=== PATIENT | female | born 1970 ===

== ENCOUNTER 2018-04-10 17:43 | Emergency (ER) | payer OTHER ==
[2018-04-10 18:36] VITALS: RESP 18
--- NOTE | 2018-04-10 19:16 | ED PDOC ---
HPI: Abdomen Time Seen by Provider: 04/10/18 18:40 Chief Complaint (Nursing): Abdominal Pain Chief Complaint (Provider): Abdominal Pain History Per: Patient History/Exam Limitations: no limitations Onset/Duration Of Symptoms: Days (x1 week) Associated Symptoms: Vomiting Additional Complaint(s): 47 year old female with a history of hypertension, vitamin D deficiency and diabetes presents to the ED with lower abdominal pain that radiates to the right flank for one week. Patient states pain has been worsening since onset with associated intermittent episodes of nonbloody nonbilious vomiting. She denies diarrhea, constipation, fever, poor appetite, or urinary symptoms. Incidentally, she reports that she hasnt had her period for a year, but at the end of last month she had an episode of spotting. PMD: [facility] Past Medical History Reviewed: Historical Data, Nursing Documentation, Vital Signs Vital Signs: Last Vital Signs Temp 98.9 F 04/10/18 18:33 Pulse 78 04/10/18 18:33 Resp 18 04/10/18 18:33 BP 120/75 04/10/18 18:33 Pulse Ox 99 04/10/18 18:33 - Medical History PMH: Diabetes, HTN, Hypercholesterolemia, Migraine Denies: Chronic Kidney Disease Other PMH: Vitamin D deficiency - Surgical History Surgical History: Appendectomy, - Family History Family History: States: Hypertension - Social History Current smoker - smoking cessation education provided: No Ex-Smoker (has not smoked in the last 12 months): No Alcohol: None - Immunization History Hx Tetanus Toxoid Vaccination: No Hx Influenza Vaccination: No Hx Pneumococcal Vaccination: No - Home Medications Home Medications: Ambulatory Orders Medication Instructions Recorded Aspirin [Ecotrin] 81 mg PO DAILY 06/09/17 Atorvastatin [Lipitor] 40 mg PO DAILY 06/09/17 Ketotifen Fumarate 06/09/17 Meclizine [Antivert] 50 mg PO TID PRN #21 tab 06/09/17 Metformin HCl [Glucophage] 1,000 mg PO BID 06/09/17 Naproxen [Naprosyn] 500 mg PO DAILY 06/09/17 Ondansetron [Zofran Odt] 4 mg PO TID PRN #9 odt 06/09/17 RX: Propranolol HCl [Propranolol 80 mg PO DAILY 06/09/17 HCl ER] Temazepam [Restoril] 15 mg PO DAILY 06/09/17 RX: Cefpodoxime [Vantin] 200 mg PO BID #14 tab 04/10/18 RX: Ibuprofen [Motrin Tab] 600 mg PO Q8 PRN #30 tab 04/10/18 - Allergies Allergies/Adverse Reactions: Allergies Allergy/AdvReac Type Severity Reaction Status Date / Time No Known Allergies Allergy Verified 04/10/18 18:33 Review of Systems ROS Statement: Except As Marked, All Systems Reviewed And Found Negative Gastrointestinal: Positive for: Vomiting, Abdominal Pain (radiating to right flank) Physical Exam - Reviewed Nursing Documentation Reviewed: Yes Vital Signs Reviewed: Yes - Physical Exam Appears: Positive for: In Acute Distress (mild painful) Head Exam: Positive for: ATRAUMATIC, NORMOCEPHALIC Skin: Positive for: Warm, Dry Eye Exam: Positive for: EOMI, PERRL ENT: Negative for: Pharyngeal Erythema, Tonsillar Exudate Neck: Positive for: Painless ROM, Supple Cardiovascular/Chest: Positive for: Regular Rate, Rhythm. Negative for: Murmur Respiratory: Positive for: Normal Breath Sounds. Negative for: Respiratory Distress Gastrointestinal/Abdominal: Positive for: Soft, Tenderness (suprapubic tenderness to palpation ). Negative for: Mass, Distended, Guarding, Rebound Back: Positive for: R CVA Tenderness. Negative for: Vertebral Tenderness Extremity: Positive for: Normal ROM. Negative for: Deformity Lymphatic: Negative for: Adenopathy Neurologic/Psych: Positive for: Alert. Negative for: Motor/Sensory Deficits - Laboratory Results Result Diagrams: 04/10/18 19:15 04/10/18 19:15 - ECG O2 Sat by Pulse Oximetry: 99 (RA) Pulse Ox Interpretation: Normal Medical Decision Making Medical Decision Making: Time: 1839 Initial Impression: Abdominal pain Differential diagnoses include but are not limited to: UTI, fibroid, colitis, pyelonephritis Initial Plan: --CMP --Urine preg --Urine dip --CBC with differentials --Glucose Time: 2005 CT Abdomen without IV contrast FINDINGS: LUNG BASES: The lung bases appear clear. No pleural effusions are seen. LIVER: Unremarkable. GALLBLADDER AND BILE DUCTS: The gallbladder appears within normal limits. No radioopaque gallstones are seen. No biliary ductal dilatation is evident. PANCREAS: Unremarkable. SPLEEN: Unremarkable. ADRENAL GLANDS: Unremarkable. KIDNEYS, URETERS, AND BLADDER: The kidneys appear within normal limits. There is no hydronephrosis or hydroureter. No urinary calculi are seen. Mildly enlarged fibroid uterus suspected. STOMACH AND BOWEL: Unremarkable appearance of the stomach and bowel. No evidence of bowel obstruction. No evidence suggesting enteritis or colitis. Mild diverticular changes sigmoid and distal descending colon. APPENDIX: No evidence of acute appendicitis on CT examination. PERITONEUM: No free fluid. No free air. LYMPH NODES: No lymphadenopathy is evident. VASCULATURE: No evidence of abdominal aortic aneurysm. BONES: No aggressive appearing osseous lesion. No acute osseous pathology evident. IMPRESSION: No acute intra-abdominal abnormality. Mildly enlarged fibroid uterus. Mild diverticular changes sigmoid and distal descending colon. -------- Urine c/w UTI Labs demonstrates leukocytosis, otherwise no significant abnormalities In setting of flank pain, pt given dose of antibiotics for possible early pyelonephritis DW pt findings and plan of care. Stable for dc home with antibiotics and f/u with PMD. Reviewed reasons to RTER and signs/symptoms of sepsis. Scribe Attestation: Documented by Bebe Noriega, acting as a scribe for Valeria Greene MD Provider Scribe Attestation: All medical record entries made by the Scribe were at my direction and pe rsonally dictated by me. I have reviewed the chart and agree that the record accurately reflects my personal performance of the history, physical exam, medical decision making, and the department course for this patient. I have also personally directed, reviewed, and agree with the discharge instructions and disposition. Disposition - Clinical Impression Clinical Impression: Pyelonephritis Counseled Patient/Family Regarding: Studies Performed, Diagnosis, Need For Followup, Rx Given - Disposition Disposition: Routine/Home Disposition Time: 21:48 Condition: IMPROVED Additional Instructions: VISITA COTTRELL DOCTOR EN 2 SOUZA A CHEQAR DE NUEVO Prescriptions: RX: Cefpodoxime [Vantin] 200 mg PO BID #14 tab RX: Ibuprofen [Motrin Tab] 600 mg PO Q8 PRN #30 tab PRN Reason: Pain, Moderate (4-7) Instructions: Kidney Infection (DC) Print Language: BOLIVIAN
[2018-04-10 19:25] LABS: BASO # 0.1 K/uL (0.0-0.2); BASO % 0.6 % (0.0-2.0); EOS # 0.1 K/uL (0.0-0.7); EOS % 0.9 % (0.0-4.0); HEMOGLOBIN 12.3 g/dL (12.0-16.0); LYMPH # 2.8 K/uL (1.0-4.3); LYMPH % 19.4 % (20.0-40.0); MEAN CELL VOLUME 94.5 fl (81.0-99.0); MEAN CORPUSCULAR HEMOGLOBIN 31.2 pg (27.0-31.0); MEAN PLATELET VOLUME 8.8 fl (7.2-11.7); MONO # 1.4 K/uL (0.0-0.8); NEUT # 9.8 K/uL (1.8-7.0); NEUT % 69.1 % (50.0-75.0); RBC 3.95 Mil/uL (3.80-5.20); RED CELL DISTRIBUTION WIDTH 12.7 % (11.5-14.5); WHITE BLOOD COUNT 14.2 K/uL (4.8-10.8)
[2018-04-10 19:32] LABS: SQUAMOUS EPITHIAL < 1 /hpf (0-5); URINE BACTERIA OCC (<OCC); URINE BILIRUBIN NEGATIVE (NEGATIVE); URINE BLOOD MODERATE (NEGATIVE); URINE CLARITY CLOUDY (Clear); URINE COLOR YELLOW (YELLOW); URINE GLUCOSE (UA) >=500 mg/dL (Normal); URINE LEUKOCYTE ESTERASE MOD Leu/uL (Negative); URINE PROTEIN 30 mg/dL (NEGATIVE); URINE UROBILINOGEN 0.2-1.0 mg/dL (0.2-1.0)
[2018-04-10 19:38] LABS: ALB/GLOB RATIO 1.1 (1.0-2.1); ALBUMIN 4.4 g/dL (3.5-5.0); BLOOD UREA NITROGEN 12 mg/dl (7-17); CALCIUM 9.5 mg/dL (8.4-10.2); GFR NON-AFRICAN AMERICAN > 60
[2018-04-10 19:41] LABS: ALT/SGPT 22 U/L (9-52); AST/SGOT 38 U/L (14-36)
[2018-04-10] MEDS ORDERED: cefTRIAXone (Rocephin) 1 gm Inj ONE (20:14)
[2018-04-10 22:01] VITALS: BP 103/67; PULSE 68; TEMP 98.2
--- NOTE | 2018-04-11 12:40 | CT ---
Date of service: 04/10/2018 PROCEDURE: CT Abdomen and Pelvis without intravenous contrast HISTORY: RIGHT flank pain UTI COMPARISON: None. TECHNIQUE: CT scan of the abdomen and pelvis was performed without the use of intravenous contrast. Multiple axial images were performed without the use of contrast. Sagittal and coronal reformatted images were also obtained.. Contrast dose: No contrast. Radiation dose: Total exam DLP = 361.6 mGy-cm. This CT exam was performed using one or more of the following dose reduction techniques: Automated exposure control, adjustment of the mA and/or kV according to patient size, and/or use of iterative reconstruction technique. FINDINGS: LOWER THORAX: Minor dependent changes at the lung bases without infiltrate or effusion. Heart is mildly enlarged. Distal esophagus is unremarkable as well as the visualized stomach. No pericardial effusion is seen. LIVER: Noncontrast images of the liver show no evidence of focal mass or intrahepatic ductal dilatation. GALLBLADDER AND BILE DUCTS: Small amount of gallbladder sludge is not excluded. No gallbladder wall thickening or pericholecystic fluid is noted. PANCREAS: Pancreas is limited in the pancreatic head region by motion and beam hardening artifact from adjacent bowel gas. No appreciable pancreatic enlargement or peripancreatic inflammatory change is noted. SPLEEN: Unremarkable. ADRENALS: Unremarkable. No mass. KIDNEYS AND URETERS: No hydronephrosis is seen. No renal calculus is noted. No perinephric changes are appreciated. Kidneys are otherwise normal in size. No ureteral calculus or dilatation is noted. VASCULATURE: No aortic aneurysm. Very mild aortic atherosclerotic calcification or mural plaque present. BOWEL: Bowel is limited by motion artifact. No appreciable colonic wall thickening or pericolonic inflammatory changes are noted. Mild chronic diverticular changes are seen in the sigmoid colon region. No small bowel dilatation or small bowel obstruction is seen. Duodenum is within normal limits. APPENDIX: No right lower quadrant inflammatory process is seen. PERITONEUM: Unremarkable. No free fluid. No free air. LYMPH NODES: Unremarkable. No enlarged lymph nodes. BLADDER: Unremarkable. REPRODUCTIVE: Uterus is mildly enlarged with possible small focal fundal fibroid identified with some mild calcification. No adnexal masses are seen. BONES: No acute fracture. OTHER FINDINGS: None. IMPRESSION: No appreciable acute inflammatory process in the abdomen or pelvis. No evidence of obstructive uropathy. Please see above for other incidental findings. This agrees with preliminary report provided by the on-call radiologist.
[2018-04-11 17:51] VITALS: O2SAT 99
== END 2018-04-10 22:05 | disposition home or self-care (01) ==
LOC: H.ER 17:43
DX: N12 Tubulo-interstitial nephritis, not specified as acute or chronic (principal); D25.9 Leiomyoma of uterus, unspecified; E55.9 Vitamin D deficiency, unspecified; E11.9 Type 2 diabetes mellitus without complications; E78.00 Pure hypercholesterolemia, unspecified; I10 Essential (primary) hypertension
CPT/HCPCS: 74176; 80053; 81003; 81025; 82948; 85025; 87040; 87086; 96360; 99285; J0696; J1885